=== PATIENT | female | born 1940 | race Caucasian/White ===

== ENCOUNTER 2018-06-20 01:35 | Outpatient (CLI) | payer MEDICARE, SELFPAY ==
[2018-06-20 12:57] LABS: ALT 22 U/L (12-78); AST 16 U/L (15-37); Albumin 3.6 g/dL (3.4-5.0); Alkaline Phosphatase 84 U/L (46-116); Anion Gap 10.3 mmol/L (3-11); BUN 12 mg/dL (7-18); Bilirubin, Total 0.4 mg/dL (0.2-1.0); CO2 24.7 mmol/L (21.0-32.0); CREATININE 0.81 mg/dL (0.55-1.02); Calcium 8.9 mg/dL (8.5-10.1); Chloride 105 mmol/L (98-107); Glucose 112 mg/dL (70-100); Potassium 4.4 mmol/L (3.5-5.1); Sodium 140 mmol/L (136-145); TSH (W/Ref FT4) 4.52 uIU/mL (0.358-3.74); Total Protein 7.1 g/dL (6.4-8.2)
[2018-06-20 13:30] LABS: FREE T4 1.08 ng/dL (0.76-1.46)
== END 2018-06-20 01:55 ==
DX: E03.9 Hypothyroidism, unspecified; I10 Essential (primary) hypertension; K21.9 Gastro-esophageal reflux disease without esophagitis; G25.0 Essential tremor
CPT/HCPCS: 36415; 80053; 84439; 84443

== ENCOUNTER 2018-09-22 11:37 | Outpatient (CLI) | payer MEDICARE, SELFPAY ==
--- NOTE | 2018-09-22 11:34 | DI.RAD_ITS ---
SYMPTOM/DIAGNOSIS: PAIN RIGHT HIP AND PELVIS: Comparison is made with 09/21/16. There has been interval worsening of hip joint space narrowing, greatest superiorly. Merissa-articular spurring is again noted. No femoral head flattening is seen. Spurring is also seen at the left hip joint with slight worsening when compared with the previous exam. IMPRESSION: Moderate to severe degenerative changes of the right hip. Moderate degenerative changes of the left hip.
== END 2018-09-22 11:57 ==
PROVIDERS: Visit Provider Orthopaedic Surgery
DX: M25.551 Pain in right hip (principal); M16.11 Unilateral primary osteoarthritis, right hip
CPT/HCPCS: 20610; 99201; 99214; 73502; J1040

== ENCOUNTER 2018-10-31 12:40 | Day surgery (SDC) | payer MEDICARE, SELFPAY ==
[2018-10-31 13:06] VITALS: BP 160/81; PULSE 65; RESP 18; TEMP 36.4; O2SAT 96
--- NOTE | 2018-10-31 16:11 | DI.RAD_ITS ---
SYMPTOM/DIAGNOSIS: OA RT HIP RIGHT HIP IN OR: Fluoroscopy Time: 6.8sec, 1.44mgy A single fluoroscopic image of the right hip was obtained. There is marked joint space narrowing, subchondral sclerosis and periarticular spurring noted in the right hip. IMPRESSION: Marked osteoarthritis of the right hip.
[2018-10-31] MEDS: methylPREDNISolone ACETATE 80 MG/ML VIAL (16:35)
--- NOTE | 2018-10-31 16:41 | W.PM.DSUDISC ---
Discharge Plan Disposition Patient Disposition: HOME Condition: Good Discharge Details Reason For Visit: C-arm guided R hip injection Attending Provider: Ed Ji Primary Care Provider: Ivy Clements Home Meds and New Rx's Prescriptions: No Action acetaminophen 325 mg capsule 650 mg PO Q6H PRNRF: 0 cholecalciferol (vitamin D3) 1,000 unit capsule 1,000 unit PO DAILY RF: 0 omeprazole 20 mg capsule,delayed release(DR/EC) 20 mg PO DAILY Qty: 90 RF: 3 propranolol 10 mg tablet 10 mg PO DAILY Qty: 90 RF: 3 ibuprofen 200 MG capsule 2 cap PO BID PRN RF: 0 flaxseed oil 1,000 MG capsule 1,000 mg PO DAILY RF: 0 docusate sodium 100 MG capsule 100 mg PO daily prn RF: 0 cyanocobalamin (vitamin B-12) [Vitamin B-12] 1,000 MCG tablet 1,000 mcg PO DAILY Qty: 100 RF: 4 glucosamine HCl 500 MG tablet 500 mg PO DAILY RF: 0 vitamin E 400 UNIT capsule 400 unit PO DAILY RF: 0 B-complex with vitamin C [Super B Complex-Vitamin C] 1 EACH tablet 1 ea PO DAILY RF: 0 clobetasol 15 GM ointment 15 gm Topical DAILY Qty: 1 RF: 3 diltiazem HCl 180 MG capsule,extended release 24hr 180 mg PO DAILY Qty: 90 RF: 3 losartan 100 MG tablet 100 mg PO DAILY Qty: 90 RF: 4 levothyroxine 50 mcg tablet 50 mcg PO DAILY Qty: 90 RF: 4 tizanidine 2 mg capsule 2 mg PO TID PRN (Reason: muscle spasticity) Qty: 30 RF: 0 glucosamine-chondroitin [Osteo Bi-Flex] 250-200 mg Tablet 1 tab PO BID RF: 0 Discharge Instructions Additional Instructions: Rest your R hip for 48 hours. After 48 hours, gradually resume activities as tolerated. Take tylenol or ibuprofen as needed for pain. Follow up with in one month. Referrals: Ed Ji MD [ [facility] STAFF PHYSICIAN] - (f/u in one month.) Activity:: Activity as Tolerated Diet:: As Tolerated Discharge Orders Discharge Orders: Discharge Order (Routine); Ordered 10/31/18 Ordered By: Ed Ji DS: Diagnosis Discharge Diagnosis (1) OA (osteoarthritis) of hip: Status: Acute
[2018-10-31] MEDS: oxyCODONE-CR 10 MG TABCR PO (17:14)
[2018-10-31] MEDS: Acetaminophen 325 MG TAB 650 MG PO (17:14)
--- NOTE | 2018-10-31 17:27 | ROE_ITS ---
DATE OF PROCEDURE: October 31, 2018 PREOPERATIVE DIAGNOSIS: Right hip pain, probable osteoarthritis of the right hip. POSTOPERATIVE DIAGNOSIS: Same. PROCEDURE: C-arm guided right hip injection with local anesthetic and steroids. SURGEON: Ed Ji M.D. ANESTHESIA: Local. INDICATIONS: This is an 78-year-old white female who has had a several-month history of significant right hip pain. It was difficult to determine whether the pain was extraarticular from her trochante ángel bursa or whether it was intraarticular due to osteoarthritis of the hip. She underwent an inject ion of her trochanteric bursa without any long-term relief. I, therefore, recommended a diagnostic a nd also possibly therapeutic injection of her right hip with C-arm guidance. This would confirm the hip joint as the source of pain. Hopefully she would get some long-term relief from the steroids inj ection as well. The risks and complications of the procedure were explained to the patient in detail preoperatively. PROCEDURE: The patient was taken to the Operating Room on 10/31/18. She was placed supine on the ope rating table. The hip joint was localized using a uterine forceps and the C-arm. The uterine forcep s was then circled with a pen and the skin was prepped with alcohol. An 18-gauge spinal needle was t hen inserted in the area of the previous yfn until it encountered the femoral head. The C-arm was u sed to confirm the position of the needle in the femoral head. I then injected into the hip 15 cc of 0.5% Marcaine with epinephrine solution along with 80 mg of Depo-Medrol. The needle was removed. I did perform passive range of motion of the hip for 30 seconds to distribute the medication. The pat ient tolerated the procedure well and was discharged to the Day Surgery Unit in good condition. The patient was discharged home from the Day Surgery unit with instructions to rest her hip as much a s possible for the next 48 hours. After 48 hours, she can gradually resume activities as tolerated. She was given 10 mg of OxyContin in the Day Surgery Unit prior to discharge home. At home she is in structed to take either Tylenol or ibuprofen, or both, as needed for pain. She will follow up in my office in one month.
== END 2018-10-31 17:58 | disposition home or self-care (01) ==
PROVIDERS: Visit Provider Orthopaedic Surgery
PROC: (CPT 20610; principal; 2018-10-31 13:30)
DX: M25.551 Pain in right hip (principal); M16.11 Unilateral primary osteoarthritis, right hip
CPT/HCPCS: 20610; 77002; 73501; J1040

== ENCOUNTER 2019-01-23 11:32 | Outpatient (CLI) | payer MEDICARE, MEDICAID, SELFPAY ==
[2019-01-23 12:36] LABS: HCT 37.5 % (36.0-46.0); HGB 12.3 g/dL (12.0-15.5); Mean Corp. HGB Concentration 32.8 g/dL (32.0-36.0); Mean Corpuscular Hemoglobin 31.5 pg (27.0-33.0); Mean Corpuscular Volume 95.9 fL (80-95); Platelet Count 264 x1000/uL (130-400); RBC 3.91 m/cumm (4.00-5.20); RBC Distribution Width 12.7 % (11.7-14.6)
[2019-01-23 14:02] LABS: ALT 22 U/L (12-78); AST 15 U/L (15-37); Albumin 3.6 g/dL (3.4-5.0); Alkaline Phosphatase 76 U/L (46-116); Anion Gap 10.8 mmol/L (3-11); BUN 16 mg/dL (7-18); Bilirubin, Total 0.3 mg/dL (0.2-1.0); CO2 23.2 mmol/L (21.0-32.0); CREATININE 0.85 mg/dL (0.55-1.02); Calcium 9.4 mg/dL (8.5-10.1); Chloride 103 mmol/L (98-107); Glucose 103 mg/dL (70-100); Potassium 4.7 mmol/L (3.5-5.1); Sodium 137 mmol/L (136-145); TSH (W/Ref FT4) 3.59 uIU/mL (0.358-3.74); Total Protein 7.2 g/dL (6.4-8.2); Vitamin B12 1840 pg/mL (193-986)
== END 2019-01-23 11:52 ==
PROVIDERS: Visit Provider Family Medicine
DX: E03.9 Hypothyroidism, unspecified (principal); E53.8 Deficiency of other specified B group vitamins; Z01.818 Encounter for other preprocedural examination
CPT/HCPCS: 36415; 80053; 85027; 82607; 84443

== ENCOUNTER 2019-03-03 08:17 | Outpatient (CLI) | payer MEDICARE, MEDICAID, SELFPAY ==
[2019-03-03 12:51] LABS: HCT 35.1 % (36.0-46.0); HGB 11.2 g/dL (12.0-15.5); Mean Corp. HGB Concentration 31.9 g/dL (32.0-36.0); Mean Corpuscular Hemoglobin 30.3 pg (27.0-33.0); Mean Corpuscular Volume 94.9 fL (80-95); Mean Platelet Volume 9.5 fL (8.0-11.0); Platelet Count 432 x1000/uL (130-400); RBC Distribution Width 12.7 % (11.7-14.6); White Blood Cell Count 5.85 k/cumm (4.4-10.8)
== END 2019-03-03 08:37 ==
DX: R42 Dizziness and giddiness (principal)
CPT/HCPCS: 36415; 85027

== ENCOUNTER 2019-06-13 07:00 | Outpatient (CLI) | payer MEDICARE, OTHER, SELFPAY ==
[2019-06-13 14:08] LABS: Glucose 98 mg/dL (70-100); Vitamin B12 397 pg/mL (193-986)
== END 2019-06-13 07:20 ==
DX: R73.01 Impaired fasting glucose (principal); D51.8 Other vitamin B12 deficiency anemias; R25.1 Tremor, unspecified; E53.8 Deficiency of other specified B group vitamins
CPT/HCPCS: 36415; 82947; 82607

== ENCOUNTER 2020-01-26 15:24 | Outpatient (CLI) | payer MEDICARE, OTHER, SELFPAY ==
--- NOTE | 2020-01-26 16:04 | DI.RAD_ITS ---
EXAM: XR HIP LT COMPLETE AP PELVIS CLINICAL HISTORY: fall, left hip pain, M25.552. TECHNIQUE: 2D digital imaging was performed. COMPARISON: CR XR HIP RT MIN 2V AND PELVIS from 09/08/2018 CR XR hip RT AP lat only from 09/22/2018 XR hip RT in OR from 10/31/2018 FINDINGS: BONES: No acute fracture is present. No bony destructive lesion is seen. Degenerative changes are see n in the lower lumbar spine and left hip. The sacroiliac joints and symphysis pubis are intact. JOINTS: No dislocation present. The patient has a right total hip replacement. SOFT TISSUE: Normal. IMPRESSION: No acute fracture or dislocation of the left hip. DATA REPOSITORY: RADIATION DOSE DELIVERED:
== END 2020-01-26 15:44 ==
PROVIDERS: Visit Provider Nurse Practitioner Family
DX: M25.552 Pain in left hip (principal)
CPT/HCPCS: 73502

== ENCOUNTER 2020-06-20 21:16 | Outpatient (REF) | payer MEDICARE, OTHER, SELFPAY ==
[2020-06-20 23:03] LABS: ALT 19 U/L (14-59); AST 15 U/L (15-37); Albumin 3.9 g/dL (3.4-5.0); Alkaline Phosphatase 90 U/L (46-116); Anion Gap 8.1 mmol/L (3-11); BUN 17 mg/dL (7-18); Bilirubin, Total 0.4 mg/dL (0.2-1.0); CO2 26.9 mmol/L (21.0-32.0); CREATININE 0.89 mg/dL (0.55-1.02); Calcium 9.2 mg/dL (8.5-10.1); Chloride 102 mmol/L (98-107); Glucose 100 mg/dL (74-106); Potassium 4.4 mmol/L (3.5-5.1); Sodium 137 mmol/L (136-145); TSH (W/Ref FT4) 3.05 uIU/mL (0.36-3.74); Total Protein 7.5 g/dL (6.4-8.2); Vitamin B12 281 pg/mL (193-986)
== END 2020-06-20 21:36 ==
LOC: LBN 21:16
DX: E03.9 Hypothyroidism, unspecified (principal); G47.00 Insomnia, unspecified; D51.8 Other vitamin B12 deficiency anemias; Z00.00 Encounter for general adult medical examination without abnormal findings
CPT/HCPCS: 80053; 82607; 84443

== ENCOUNTER 2022-10-05 10:56 | Day surgery (SDC) | payer MEDICARE, OTHER, SELFPAY ==
--- NOTE | 2022-10-05 10:59 | W.ANESPRE ---
General Info Date of Service Date Performed: 10/05/22 Height: 5 ft 2 in Weight: 88.451 kg Body Mass Index (BMI): 35.6 Surgical Procedure: Operation Date: 10/05/22 14:40 Proposed Procedure Side Surgeon p Cataract Extraction with IOL Implant Left Hayden Tabor MD Meds Allergies and Home Medications Allergies Allergy/AdvReac Type Severity Reaction Status Date / Time egg Allergy Unknown Verified 10/05/22 11:44 tetanus and diphtheria Allergy Unknown LARGE Verified 10/05/22 11:44 toxoids LOCAL REACTION amlodipine AdvReac Severe DIARRHEA Verified 10/05/22 11:44 codeine AdvReac Intermediate GI UPSET Verified 10/05/22 11:44 gabapentin AdvReac Intermediate Thoughts Verified 10/05/22 11:44 changed hydrochlorothiazide AdvReac Intermediate hyponatremi Verified 10/05/22 11:44 a naproxen AdvReac Intermediate Upset Verified 10/05/22 11:44 Stomach primidone AdvReac Intermediate Dizziness/L Unverified 10/05/22 11:44 ighthead lisinopril AdvReac Mild cough Verified 10/05/22 11:44 Home Medication Medication Instructions Recorded ibuprofen 200 mg capsule 2 cap PO BID PRN 11/17/12 flaxseed oil 1,000 mg capsule 1,000 mg PO DAILY 04/02/15 cyanocobalamin (vitamin B-12) 1,000 mcg PO DAILY #100 tab-caps 04/11/15 1,000 mcg tablet (Vitamin B-12) glucosamine HCl 500 mg tablet 500 mg PO DAILY 03/13/16 vitamin E 268 mg (400 unit) capsule 400 unit PO DAILY 04/20/16 cholecalciferol (vitamin D3) 25 1,000 unit PO DAILY 06/07/18 mcg (1,000 unit) capsule acetaminophen 325 mg capsule 650 mg PO Q6H PRN 09/14/18 meclizine 12.5 mg tablet 12.5 - 25 mg PO TID PRN dizziness 07/17/19 #42 tabs apple cider vinegar 600 mg capsule See Rx Instructions PO .COMPLEX 01/26/20 propranolol 10 mg tablet 10 mg PO BID #180 tabs 02/29/20 clobetasol 0.05 % topical ointment 1 applic topical DAILY #1 tube 06/20/20 losartan 100 mg tablet 100 mg PO DAILY #90 tab-caps 06/26/20 diltiazem HCl 180 mg 180 mg PO DAILY #30 tab-caps 11/21/20 capsule,extended release 24 hr cyclobenzaprine 10 mg tablet 10 mg PO HS 10/01/22 estradiol 0.01% (0.1 mg/gram) 1 g vaginal HS 10/01/22 vaginal cream levothyroxine 75 mcg tablet 75 mcg PO DAILY 10/01/22 loteprednol etabonate 0.5 % eye 1 drp ophthalmic (eye) QID 10/01/22 drops,suspension metoprolol succinate 100 mg 100 mg PO DAILY 10/01/22 tablet,extended release 24 hr omeprazole 40 mg capsule,delayed 40 mg PO DAILY 10/01/22 release primidone 50 mg tablet 50 mg PO BID 10/01/22 Current Visit Medications: Current Medications Generic Name Dose Route Start Last Admin Trade Name Freq PRN Reason Stop Dose Admin Acetaminophen 1,000 mg 10/05/22 06:00 Acetaminophen 500 Mg Tab PO Q4H PRN PRN Miscellaneous Medication 0 ml 10/05/22 06:00 Tropicam./Phenyleph. (1/2.5%) 5 Ml Btl OS DIRECTED LORIE Miscellaneous Medication 0 ml 10/05/22 06:00 Prednisolone 1%, Moxifloxacin 0.5%, Nepafenac 0.1% 5ml Btl OS DIRECTED LORIE Tetracaine HCl 0 ml 10/05/22 06:00 Tetracaine 0.5% 4 Ml Btl OS DIRECTED LORIE PFSH Active Problems Active Problems: Problem Status Onset Code Cortical cataract of left eye H26.9 Nuclear sclerotic cataract of left eye H25.12 Impacted cerumen, right ear H61.21 Encounter for annual physical exam Z00.00 Vulvovaginitis N76.0 Status post hip replacement Z96.649 Diverticulosis of colon without diverticulitis K57.30 Status post carpal tunnel release Z98.890 OA (osteoarthritis) of hip M16.9 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 Diverticulosis Essential hypertension Gastroesophageal reflux disease Hiatal hernia Hyponatremia (09/26/13) Hypothyroidism Medical History Comments:: Per pt. states she was in [facility] ER, for high BP, and chest pressure, pt. stated she had whole work-up which came back negative. Surgical History Surgical History History of gynecological procedure Open Carpal Tunnel release 1993,2007 Status post tonsillectomy and adenoidectomy Tonsillectomy and adenoidectomy (~1943) Vaginal sling Tobacco Smoking/Tobacco Use Status: Never Passive smoking exposure: Yes Alcohol Alcohol Intake: never Substance Use Substance use: Never Substance use type: does not use Counseling provided: none Vital Signs and Lab Results Lab Results Blood Type / Crossmatch: No Data to Display Complete Blood Count: No Data to Display Complete Metabolic Panel: No Data to Display Liver Function Panel: No Data to Display Coagulation Panel: No Data to Display Cardiac Panel: No Data to Display Arterial Blood Gas: No Data to Display Venous Blood Gas: No Data to Display Pancreas Panel: No Data to Display Thyroid Panel: No Data to Display Infectious Disease: No Data to Display Blood Cultures: No Data to Display Toxicology Panel: No Data to Display Anesthesia Assessment and Plan Anesthesia History Personal History: No History of Anesthesia Complications Family History: No Family History of Anesthesia Complications Exercise Tolerance Exercise Tolerance: Metabolic Equivalents>4 Cardiac & Pulmonary Exam Cardiac Exam: Normal S1/S2 Heart Sounds Pulmonary Exam: Clear Bilateral Breath Sounds Implantable Cardiac Device Does patient have a Pacemaker or an ICD?: No Airway Exam Known Difficult Airway: No Mallampati Class: 3 Mouth Opening: Normal (> 3cm) Thyromental Distance: Greater than 3 cm Neck Range of Motion: Full ROM Neck Circumference: Thick Teeth Condition: Normal Dentition ASA Classification ASA Score: ASA 2 Emergency Case?: No NPO Status NPO Status: NPO Clears >2 hours, Solids >8 hours Anesthesia Plan Resuscitation Status: Full Code Anesthesia Technique: MAC Anesthesia Airway Planned: Natural Airway Monitors Used: Standard Monitors Preoperative Comments:: 82 yo female for cataract removal. Sig PMHx: hypothyroid (levothyroxine), GERD (omeprazole), tremor (? metoprolol, also has propranolol on her list, unclear which she take, but seems like metop), HTN (dilt, losartan), asthma (hasn't had in years), never smoker/etoh.
[2022-10-05 11:15] VITALS: BP 167/84; PULSE 57; RESP 16; TEMP 36.4; O2SAT 97
[2022-10-05 12:00] VITALS: BMI 35.6
[2022-10-05] MEDS: Tropicam./Phenyleph. (1/2.5%) 5 ML BTL OS ×3 (12:06→12:25)
[2022-10-05] MEDS: Tetracaine 0.5% 4 ML BTL OS (12:55)
[2022-10-05] MEDS: Balanced Salt Soln.-PLUS 500 ML BAG (12:56)
[2022-10-05] MEDS: Duovisc Viscoelastic System EACH 1 EACH (12:56)
[2022-10-05] MEDS: Lidocaine 1% Pres-Free 5 ML VIAL (12:56)
[2022-10-05] MEDS: Lidocaine 2% Jelly 6 ML SYR (12:57)
[2022-10-05] MEDS: Povidone-Iodine Ophth 30 ML BTL (12:58)
[2022-10-05 13:10] VITALS: BP 146/68; PULSE 57; RESP 16; TEMP 36.3; O2SAT 98
--- NOTE | 2022-10-05 13:10 | W.PM.DSUDISC ---
Date of service: 10/05/22 Time of Service: 13:10 Discharge Plan Disposition Patient Disposition: Home Discharge Details Attending Provider: Hayden Tabor Primary Care Provider: Andres Starks Home Meds and New Rx's Prescriptions: No Action acetaminophen 325 mg capsule 650 mg PO Q6H PRN cholecalciferol (vitamin D3) 1,000 unit capsule 1,000 unit PO DAILY meclizine 12.5 mg tablet 12.5 - 25 mg PO TID PRN (Reason: dizziness) Qty: 42 0RF ibuprofen 200 MG capsule 2 cap PO BID PRN flaxseed oil 1,000 MG capsule 1,000 mg PO DAILY cyanocobalamin (vitamin B-12) [Vitamin B-12] 1,000 MCG tablet 1,000 mcg PO DAILY Qty: 100 Hold Instructions: Home Medication placed on hold at Doctor's office glucosamine HCl 500 MG tablet 500 mg PO DAILY vitamin E 400 UNIT capsule 400 unit PO DAILY losartan 100 mg tablet 100 mg PO DAILY Qty: 90 4RF diltiazem HCl 180 mg capsule,extended release 24hr 180 mg PO DAILY Qty: 30 0RF cyclobenzaprine 10 mg tablet 10 mg PO HS Patient Comments: TAKE 1 TABLET BY MOUTH ONCE DAILY AT NIGHT AT BEDTIME primidone 50 mg tablet 50 mg PO BID Patient Comments: TAKE 1 TABLET BY MOUTH TWICE DAILY metoprolol succinate 100 mg tablet extended release 24 hr 100 mg PO DAILY Patient Comments: TAKE 1 TABLET BY MOUTH ONCE DAILY omeprazole 40 mg capsule,delayed release(DR/EC) 40 mg PO DAILY Patient Comments: TAKE 1 CAPSULE BY MOUTH ONCE DAILY FOR 90 DAYS levothyroxine 75 mcg tablet 75 mcg PO DAILY Patient Comments: TAKE 1 TABLET BY MOUTH ONCE DAILY loteprednol etabonate 0.5 % drops,suspension 1 drp ophthalmic (eye) QID Patient Comments: INSTILL 1 DROP INTO EACH EYE 4 TIMES DAILY estradiol 0.01 % (0.1 mg/gram) cream 1 g VAGINAL HS Patient Comments: INSERT 1 GRAM VAGINALLY AT BEDTIME Discharge Instructions Stand Alone Forms: Post-op Topical Cataract, Press Ganey (DSU) Discharge Orders Discharge Orders: Discharge Order (Routine); Ordered 10/05/22 Ordered By: Hayden Tabor DS: Diagnosis Discharge Diagnosis (1) Nuclear sclerotic cataract of left eye: Status: Resolved (2) Cortical cataract of left eye: Status: Resolved
--- NOTE | 2022-10-05 13:11 | ROE_ITS ---
Date of service: 10/05/22 Time of Service: 13:11 Operative Note Operative Note DATE OF PROCEDURE: 10/05/22 PRE-OP DIAGNOSIS: Nuclear/cortical cataract, left eye POST-OP DIAGNOSIS: same PROCEDURE: Cataract extraction using phacoemulsification with intraocular lens implant, left eye SURGEON: Hayden Tabor ANESTHESIA TYPE: Local By Surgeon and MAC Refer to Anesthesia Record PATHOLOGY: none sent COMPLICATIONS: None Patient was transported to: same day Patient's condition: stable Implants: Jean-Pierre and Jean-Pierre Tecnis Eyhance [id number] Indications: Progressive decreased vision due to cataract, left eye Procedure Description: CATARACT SURGERY OPERATIVE REPORT PREOPERATIVE DIAGNOSIS: 1. Nuclear/cortical cataract, left eye POSTOPERATIVE DIAGNOSIS: Same OPERATION: 1. Cataract extraction using phacoemulsification with posterior chamber intraocular lens implant, left eye. IOL: IOL Trestle Mainternance Laborer/Model: Jean-Pierre & Jean-Pierre [employer]ecnis Eyhance DIB00 IOL Power: + 24.0 diopters IOL Serial Number: [id number] Optic Diameter: 6.0 mm Haptic/Overall Diameter: 13.0 mm PHACO INFO: [employer] Vision System with OZil and Active Fluidics Cumulative Dispersed Energy (CDE): 9.62 seconds SURGEON: Hayden Tabor MD, SANDER ANESTHESIA: Monitored A [facility] (MAC), with local sub-tenon's anesthetic infiltration COMPLICATIONS: None SPECIMENS: None INDICATIONS FOR PROCEDURE: The patient is an 82-year-old lady with history of diminished visual acuity in her left eye secondary to the development of nuclear/cortical cataract. She is significantly symptomatic that she desires cataract surgery attempt to improve and maximize her vision. The option of cataract surgery was offered to the patient and she wished to proceed. PROCEDURE: The correct surgical eye was identified and marked as the left eye and the pupil was dilated in the preoperative area using mydriatics and cycloplegics. The dilated pupil size was 7.0 mm. . The patient elected to proceed without oral sedation. The patient was brought to the operating room where cardiopulmonary monitoring was instituted and surgical time-out was performed, confirming the correct operative eye and IOL power. Topical anesthesia was administered and ophthalmic povidone-iodine 5% was instilled into the conjunctival fornices. Lidocaine gel was applied to the cornea and the magalys-ocular area was prepped with Betadine 10% solution and draped in the usual sterile fashion for intraocular surgery, including an aperture drape. A Tegaderm transparent film dressing was cut in half and used to cover the lashes and lid margins. Care was taken to sequester the lashes and lid margins under the Tegaderm dressing. A lid speculum was placed between the lids of the operative eye and the Malick [employer] Revalia operating microscope was maneuvered into position. Ciara scissors were then used to make a conjunctival buttonhole approximately 6mm posterior to the limbus in the inferonasal quadrant. Blunt dissection was carried out to expose bare sclera, and a blunt-tipped sub-tenon?s anesthesia cannula was introduced and passed posteriorly along the globe where non- preserved plain lidocaine was injected into posterior sub-Tenon?s space. A sideport knife was used to make a paracentesis port superiorly/superiortemporally. Intraocular phenylephrine/lidocaine was injected int the anterior chamber.. The anterior chamber was filled with viscoelastic. A keratome knife was used to construct a 2-plane near-clear corneal tunnel extending 2.0mm into clear cornea temporally. A flap was raised on the anterior capsule and capsulorhexis forceps were used to complete a continuous curvilinear capsulorhexis of 5.5 mm. Balanced salt solution was then used to perform cortical cleaving hydrodissection and nuclear hydrodelineation until the lens could be freely rotated within the capsular bag. The lens nucleus was then disassembled and removed within the capsular bag and iris plane using phacoemulsification. Residual cortical material was removed using the 45-degree angled silicone I/A tip with 0.3mm port. The posterior capsule was carefully polished to remove as much residual lens epithelial cells as safely possible. The capsular bag was then inflated and the anterior chamber deepened with viscoelastic. The lens implant described above was inserted into the capsular bag using the Jean-Pierre and Jean-Pierre Simplicity pre-loaded injector. . A Kuglen hook was used to dial the IOL into position. Residual viscoelastic was then removed first from posterior to the IOL, then from the anterior chamber using the I/A handpiece. The lens implant was noted to center nicely within the capsular bag. The incisions were stromally hydrated, and the anterior chamber was reformed using BSS. Then 0.5cc of moxifloxacin 1.0mg/ml were injected into the capsular bag and anterior chamber. The incisions were checked with a Weck spear and found to be secure. Several drops of ophthalmic povidone-iodine 5% were then applied to the eye followed by two drops of Imprimis combination prednisolone/moxifloxacin/nepafenac solution. The drapes were removed and a clear plastic protective eye shield was placed over the eye. The patient was then returned to Same Day Surgery in stable condition.
--- NOTE | 2022-10-05 14:01 | W.ANESPOSTOP ---
Postoperative Evaluation Date, Time and Location Date Performed: 10/05/22 Time Performed: 13:10 Patient Location: Day Surgery Unit Vital Signs Most Recent Imported Vital Signs: Most Recent Vital Signs Temp Pulse Resp BP Pulse Ox 36.3 C L 57 L 16 146/68 H 98 10/05/22 13:10 10/05/22 13:10 10/05/22 13:10 10/05/22 13:10 10/05/22 13:10 Pain Score Most Recent Pain Score: Most Recent Pain Score Pain Level 0 10/05/22 13:10 Assessment Mental Status: Awake (Alert & Oriented to Patient Baseline) Airway and Respiratory Function: Patent airway with normal (patient baseline) respiratory exam Cardiovascular Function: Hemodynamically Stable Hydration Status: Adequately Hydrated Nausea & Vomiting: No Nausea or Vomiting Pain: Pt. Denies Any Pain Peripheral Nerve Block: Patient did not receive a nerve block
== END 2022-10-05 13:40 | disposition home or self-care (01) ==
PROVIDERS: PCP Family Medicine; Visit Provider Ophthalmology
PROC: (CPT 66984; principal; 2022-10-05 14:30)
DX: H25.12 Age-related nuclear cataract, left eye (principal)
CPT/HCPCS: 66984; V2632

== ENCOUNTER 2022-10-19 10:32 | Day surgery (SDC) | payer MEDICARE, OTHER, SELFPAY ==
--- NOTE | 2022-10-19 06:55 | W.ANESPRE ---
General Info Date of Service Date Performed: 10/19/22 Height: 5 ft 2 in Weight: 89.4 kg Body Mass Index (BMI): 36.0 Surgical Procedure: Operation Date: 10/19/22 13:40 Proposed Procedure Side Surgeon p Cataract Extraction with IOL Implant Right Hayden Tabor MD Meds Allergies and Home Medications Allergies Allergy/AdvReac Type Severity Reaction Status Date / Time egg Allergy Unknown Verified 10/19/22 10:59 tetanus and diphtheria Allergy Unknown LARGE Verified 10/19/22 10:59 toxoids LOCAL REACTION amlodipine AdvReac Severe DIARRHEA Verified 10/19/22 10:59 codeine AdvReac Intermediate GI UPSET Verified 10/19/22 10:59 gabapentin AdvReac Intermediate Thoughts Verified 10/19/22 10:59 changed hydrochlorothiazide AdvReac Intermediate hyponatremi Verified 10/19/22 10:59 a naproxen AdvReac Intermediate Upset Verified 10/19/22 10:59 Stomach primidone AdvReac Intermediate Dizziness/L Unverified 10/19/22 10:59 ighthead lisinopril AdvReac Mild cough Verified 10/19/22 10:59 Home Medication Medication Instructions Recorded ibuprofen 200 mg capsule 2 cap PO BID PRN 11/17/12 flaxseed oil 1,000 mg capsule 1,000 mg PO DAILY 04/02/15 cyanocobalamin (vitamin B-12) 1,000 mcg PO DAILY #100 tab-caps 04/11/15 1,000 mcg tablet (Vitamin B-12) glucosamine HCl 500 mg tablet 500 mg PO DAILY 03/13/16 vitamin E 268 mg (400 unit) capsule 400 unit PO DAILY 04/20/16 cholecalciferol (vitamin D3) 25 1,000 unit PO DAILY 06/07/18 mcg (1,000 unit) capsule acetaminophen 325 mg capsule 650 mg PO Q6H PRN 09/14/18 meclizine 12.5 mg tablet 12.5 - 25 mg PO TID PRN dizziness 07/17/19 #42 tabs losartan 100 mg tablet 100 mg PO DAILY #90 tab-caps 06/26/20 diltiazem HCl 180 mg 180 mg PO DAILY #30 tab-caps 11/21/20 capsule,extended release 24 hr cyclobenzaprine 10 mg tablet 10 mg PO HS 10/01/22 levothyroxine 75 mcg tablet 75 mcg PO DAILY 10/01/22 loteprednol etabonate 0.5 % eye 1 drp ophthalmic (eye) QID 10/01/22 drops,suspension metoprolol succinate 100 mg 100 mg PO DAILY 10/01/22 tablet,extended release 24 hr omeprazole 40 mg capsule,delayed 40 mg PO DAILY 10/01/22 release primidone 50 mg tablet 50 mg PO BID 10/01/22 estradiol 0.01% (0.1 mg/gram) 1 g vaginal HS 10/05/22 vaginal cream Current Visit Medications: Current Medications Generic Name Dose Route Start Last Admin Trade Name Freq PRN Reason Stop Dose Admin Acetaminophen 1,000 mg 10/19/22 06:00 Acetaminophen 500 Mg Tab PO Q4H PRN PRN Miscellaneous Medication 0 ml 10/19/22 06:00 Tropicam./Phenyleph. (1/2.5%) 5 Ml Btl OD DIRECTED [facility] Miscellaneous Medication 0 ml 10/19/22 06:00 Prednisolone 1%, Moxifloxacin 0.5%, Nepafenac 0.1% 5ml Btl OD DIRECTED LORIE Tetracaine HCl 0 ml 10/19/22 06:00 Tetracaine 0.5% 4 Ml Btl OD DIRECTED [facility] PFSH Active Problems Active Problems: Problem Status Onset Code Posterior subcapsular age-related cataract, right eye H25.041 Nuclear age-related cataract, right eye H25.11 Degenerative arthritis M19.90 Essential tremor 04/20/16 G25.0 Gastroesophageal reflux disease K21.9 Hypertension I10 Hypothyroidism 06/05/11 E03.9 Sciatica 02/11/12 M54.30 Vitamin B 12 deficiency 04/02/14 E53.8 Hip pain, right M25.551 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 COVID 09/04/22 Diverticulosis Essential hypertension Gastroesophageal reflux disease Hiatal hernia Hyponatremia (09/26/13) Hypothyroidism Transient cerebral ischemia Per patient hospitalized overnight summer 2020. Symptoms Resolved within 30 min. Surgical History Surgical History (Updated 10/19/22 @ 10:58 by Mary Cuellar) History of gynecological procedure Hx of cataract removal with insertion of prosthetic lens Open Carpal Tunnel release 1993,2007 Status post tonsillectomy and adenoidectomy Tonsillectomy and adenoidectomy (~1943) Vaginal sling Tobacco Smoking/Tobacco Use Status: Never Passive smoking exposure: Yes Alcohol Alcohol Intake: never Substance Use Substance use: Never Substance use type: does not use Counseling provided: none Vital Signs and Lab Results Vital Signs Most Recent Vital Signs in EMR: Temp Pulse Resp BP Pulse Ox 36.4 C L 58 L 18 165/85 H 97 10/19/22 11:07 10/19/22 11:07 10/19/22 11:07 10/19/22 11:07 10/19/22 11:07 Lab Results Blood Type / Crossmatch: No Data to Display Complete Blood Count: No Data to Display Complete Metabolic Panel: No Data to Display Liver Function Panel: No Data to Display Coagulation Panel: No Data to Display Cardiac Panel: No Data to Display Arterial Blood Gas: No Data to Display Venous Blood Gas: No Data to Display Pancreas Panel: No Data to Display Thyroid Panel: No Data to Display Infectious Disease: No Data to Display Blood Cultures: No Data to Display Toxicology Panel: No Data to Display Anesthesia Assessment and Plan Anesthesia History Personal History: No History of Anesthesia Complications Family History: No Family History of Anesthesia Complications Exercise Tolerance Exercise Tolerance: Metabolic Equivalents>4 Cardiac & Pulmonary Exam Cardiac Exam: Normal S1/S2 Heart Sounds Pulmonary Exam: Clear Bilateral Breath Sounds Implantable Cardiac Device Does patient have a Pacemaker or an ICD?: No Airway Exam Known Difficult Airway: No Mallampati Class: 3 Mouth Opening: Normal (> 3cm) Thyromental Distance: Greater than 3 cm Neck Range of Motion: Full ROM Neck Circumference: Thick Teeth Condition: Normal Dentition ASA Classification ASA Score: ASA 2 Emergency Case?: No NPO Status NPO Status: NPO Clears >2 hours, Solids >8 hours Anesthesia Plan Resuscitation Status: Full Code Anesthesia Technique: MAC Anesthesia Airway Planned: Natural Airway Monitors Used: Standard Monitors Preoperative Comments:: 82 yo female for repeat cataract removal. no change in health history. Sig PMHx: hypothyroid (levothyroxine), GERD (omeprazole), tremor (? metoprolol, also has propranolol on her list, unclear which she take, but seems like metop), HTN (dilt, losartan), asthma (hasn't had in years), never smoker/etoh. Previous Cat without MKO. would like the same today.
[2022-10-19 10:23] VITALS: BMI 36.0
[2022-10-19] MEDS: Tropicam./Phenyleph. (1/2.5%) 5 ML BTL OD ×3 (11:06→11:21)
[2022-10-19 11:07] VITALS: BP 165/85; PULSE 58; RESP 18; TEMP 36.4; O2SAT 97
[2022-10-19] MEDS: Balanced Salt Soln.-PLUS 500 ML BAG (11:54)
[2022-10-19] MEDS: Tetracaine 0.5% 4 ML BTL OD (11:54)
[2022-10-19] MEDS: Lidocaine 1% Pres-Free 5 ML VIAL (11:55)
[2022-10-19] MEDS: Lidocaine 2% Jelly 6 ML SYR (11:55)
[2022-10-19] MEDS: Duovisc Viscoelastic System EACH 1 EACH (11:55)
[2022-10-19] MEDS: Povidone-Iodine Ophth 30 ML BTL (11:56)
[2022-10-19] MEDS: Phenylephrine/Lidocaine (15/10) MG/ML 1 ML VIAL (11:56)
[2022-10-19 12:18] VITALS: BP 151/69; PULSE 56; RESP 16; TEMP 36; O2SAT 100
--- NOTE | 2022-10-19 12:18 | W.PM.DSUDISC ---
Date of service: 10/19/22 Time of Service: 12:18 Discharge Plan Disposition Patient Disposition: Home Discharge Details Attending Provider: Hayden Tabor Primary Care Provider: Andres Starks Home Meds and New Rx's Prescriptions: No Action acetaminophen 325 mg capsule 650 mg PO Q6H PRN cholecalciferol (vitamin D3) 1,000 unit capsule 1,000 unit PO DAILY meclizine 12.5 mg tablet 12.5 - 25 mg PO TID PRN (Reason: dizziness) Qty: 42 0RF ibuprofen 200 MG capsule 2 cap PO BID PRN flaxseed oil 1,000 MG capsule 1,000 mg PO DAILY cyanocobalamin (vitamin B-12) [Vitamin B-12] 1,000 MCG tablet 1,000 mcg PO DAILY Qty: 100 Hold Instructions: Home Medication placed on hold at Doctor's office glucosamine HCl 500 MG tablet 500 mg PO DAILY vitamin E 400 UNIT capsule 400 unit PO DAILY losartan 100 mg tablet 100 mg PO DAILY Qty: 90 4RF diltiazem HCl 180 mg capsule,extended release 24hr 180 mg PO DAILY Qty: 30 0RF cyclobenzaprine 10 mg tablet 10 mg PO PRN PRN Patient Comments: TAKE 1 TABLET BY MOUTH ONCE DAILY AT NIGHT AT BEDTIME primidone 50 mg tablet 50 mg PO BID Patient Comments: TAKE 1 TABLET BY MOUTH TWICE DAILY metoprolol succinate 100 mg tablet extended release 24 hr 100 mg PO DAILY Patient Comments: TAKE 1 TABLET BY MOUTH ONCE DAILY omeprazole 40 mg capsule,delayed release(DR/EC) 40 mg PO DAILY Patient Comments: TAKE 1 CAPSULE BY MOUTH ONCE DAILY FOR 90 DAYS levothyroxine 75 mcg tablet 75 mcg PO DAILY Patient Comments: TAKE 1 TABLET BY MOUTH ONCE DAILY loteprednol etabonate 0.5 % drops,suspension 1 drp ophthalmic (eye) QID Patient Comments: INSTILL 1 DROP INTO EACH EYE 4 TIMES DAILY estradiol 0.01 % (0.1 mg/gram) cream 1 g VAGINAL HS Patient Comments: INSERT 1 GRAM VAGINALLY AT BEDTIME Discharge Instructions Stand Alone Forms: Post-op Topical Cataract, Press Ganey (DSU) Discharge Orders Discharge Orders: Discharge Order (Routine); Ordered 10/19/22 Ordered By: Hayden Tabor DS: Diagnosis Discharge Diagnosis (1) Nuclear age-related cataract, right eye: Status: Resolved (2) Posterior subcapsular age-related cataract, right eye: Status: Resolved
--- NOTE | 2022-10-19 12:19 | W.PM.OP ---
Date of service: 10/19/22 Time of Service: 12:19 Operative Note Operative Note DATE OF PROCEDURE: 10/19/22 PRE-OP DIAGNOSIS: Nuclear/posterior subcapsular cataract, right eye POST-OP DIAGNOSIS: same PROCEDURE: Cataract extraction using phacoemulsification with intraocular lens implant, right eye SURGEON: Hayden Tabor ANESTHESIA TYPE: Local By Surgeon and MAC Refer to Anesthesia Record ESTIMATED BLOOD LOSS: 0 PATHOLOGY: none sent COMPLICATIONS: None Patient was transported to: same day Patient's condition: stable Implants: Jean[employer]Pierre & Jean-Pierre Tecnis Eyhance [id number] Indications: Progressive visual loss due to cataract, right eye Procedure Description: CATARACT SURGERY OPERATIVE REPORT PREOPERATIVE DIAGNOSIS: 1. Nuclear/posterior subcapsular cataract, right eye POSTOPERATIVE DIAGNOSIS: Same OPERATION: 1. Cataract extraction using phacoemulsification with posterior chamber intraocular lens implant, right eye. IOL: IOL Yarn Winder/Model: Jean-Pierre & Jean-Pierre Tecnis Eyhance DIB00 IOL Power: + 24.5 diopters IOL Serial Number: [id number] Optic Diameter: 6.0mm Haptic/Overall Diameter: 13.0mm PHACO INFO: Malick Smartbill - Recurrence Backofficeurion Vision System with OZil and Active Fluidics Cumulative Dispersed Energy (CDE): 11.01 seconds SURGEON: Hayden Tabor MD, SANDER ANESTHESIA: Monitored Anesthesia Care (MAC), with local sub-tenon's anesthetic infiltration COMPLICATIONS: None SPECIMENS: None INDICATIONS FOR PROCEDURE: The patient is an 82-year-old lady with history of diminished visual acuity in her right eye secondary to the development of nuclear/posterior subcapsular cataract. She is significantly symptomatic that she desires cataract surgery and attempt to improve and maximize her vision. The option of cataract surgery was offered to the patient and she wished to proceed. PROCEDURE: The correct surgical eye was identified and marked as the right eye and the pupil was dilated in the preoperative area using mydriatics and cycloplegics. The dilated pupil size was 6.0 mm. The patient elected to proceed without oral sedation. The patient was brought to the operating room where cardiopulmonary monitoring was instituted and surgical time-out was performed, confirming the correct operative eye and IOL power. Topical anesthesia was administered and ophthalmic povidone-iodine 5% was instilled into the conjunctival fornices. Lidocaine gel was applied to the cornea and the magalsy-ocular area was prepped with Betadine 10% solution and draped in the usual sterile fashion for intraocular surgery, including an aperture drape. A Tegaderm transparent film dressing was cut in half and used to cover the lashes and lid margins. Care was taken to sequester the lashes and lid margins under the Tegaderm dressing. A lid speculum was placed between the lids of the operative eye and the Malick LuxOR Revalia operating microscope was maneuvered into position. Ciara scissors were then used to make a conjunctival buttonhole approximately 6mm posterior to the limbus in the inferonasal quadrant. Blunt dissection was carried out to expose bare sclera, and a blunt-tipped sub-tenon?s anesthesia cannula was introduced and passed posteriorly along the globe where non-preserved plain lidocaine was injected into posterior sub-Tenon?s space. A sideport knife was used to make a paracentesis port inferotemporally. Intraocular phenylephrine/lidocaine was injected into the anterior chamber. The anterior chamber was filled with viscoelastic. A keratome knife was used to construct a 2-plane near-clear corneal tunnel extending 2.0mm into clear cornea superiortemporally. A flap was raised on the anterior capsule and capsulorhexis forceps were used to complete a continuous curvilinear capsulorhexis of 5.0 mm. Balanced salt solution was then used to perform cortical cleaving hydrodissection and nuclear hydrodelineation until the lens could be freely rotated within the capsular bag. The lens nucleus was then disassembled and removed within the capsular bag and iris plane using phacoemulsification. Residual cortical material was removed using the I/A handpiece. The posterior capsule was carefully polished to remove as much residual lens epithelial cells as safely possible. The capsular bag was then inflated and the anterior chamber deepened with viscoelastic. The lens implant described above was inserted into the capsular bag using the Jean-Pierre and Fredy Simplicity pre-loaded injector. A Kuglen hook was used to dial the IOL into position. Residual viscoelastic was then removed first from posterior to the IOL, then from the anterior chamber using the I/A handpiece. The lens implant was noted to center nicely within the capsular bag. The incisions were stromally hydrated, and the anterior chamber was reformed using BSS. Then 0.5cc of moxifloxacin 1.0mg/ml were injected into the capsular bag and anterior chamber. The incisions were checked with a Weck spear and found to be secure. Several drops of ophthalmic povidone-iodine 5% were then applied to the eye followed by two drops of Imprimis combination prednisolone/moxifloxacin/nepafenac solution. The drapes were removed and a clear plastic protective eye shield was placed over the eye. The patient was then returned to [facility] Day Surgery in stable condition.
--- NOTE | 2022-10-19 12:33 | W.ANESPOSTOP ---
Postoperative Evaluation Date, Time and Location Date Performed: 10/19/22 Time Performed: 12:28 Patient Location: Day Surgery Unit Vital Signs Most Recent Imported Vital Signs: Most Recent Vital Signs Temp Pulse Resp BP Pulse Ox 36 C L 56 L 16 151/69 H 100 10/19/22 12:18 10/19/22 12:18 10/19/22 12:18 10/19/22 12:18 10/19/22 12:18 Pain Score Most Recent Pain Score: Most Recent Pain Score Pain Level 0 10/19/22 12:18 Assessment Mental Status: Awake (Alert & Oriented to Patient Baseline) Airway and Respiratory Function: Patent airway with normal (patient baseline) respiratory exam Cardiovascular Function: Hemodynamically Stable Hydration Status: Adequately Hydrated Nausea & Vomiting: No Nausea or Vomiting Pain: Pt. Denies Any Pain Peripheral Nerve Block: Patient did not receive a nerve block
== END 2022-10-19 12:45 | disposition home or self-care (01) ==
LOC: SUR 10:33
PROVIDERS: PCP Family Medicine; Visit Provider Ophthalmology
PROC: (CPT 66984; principal; 2022-10-19 13:30)
DX: H25.811 Combined forms of age-related cataract, right eye (principal)
CPT/HCPCS: 66984; V2632

== ENCOUNTER 2023-07-29 11:53 | Outpatient (CLI) | payer MEDICARE, OTHER, SELFPAY ==
--- NOTE | 2023-07-29 06:00 | DI.RAD_ITS ---
Exam(s) XR PAIN CLINIC LUMBAR SP 2V EXAM: XR PAIN CLINIC LUMBAR SP 2V CLINICAL HISTORY: DX: Lumbar radiculopathy. TECHNIQUE: Fluoroscopy was provided for the referring physician for guidance with performing pain cl inic injection procedure. COMPARISON: No exams were available for comparison FINDINGS: Please see procedure note for details. Fluoro time: 22.3 seconds RADIATION DOSE DELIVERED: Ka,r=11.34 mGy
[2023-07-29 12:15] VITALS: BP 176/95; PULSE 60; RESP 20; TEMP 36.7; O2SAT 95
[2023-07-29 12:58] VITALS: BP 140/91; PULSE 58; RESP 12; O2SAT 93
[2023-07-29] MEDS: Omnipaque 240 MG/ML 50 ML BTL IJ (13:06)
[2023-07-29] MEDS: methylPREDNISolone ACETATE 80 MG/ML VIAL IJ (13:07)
--- NOTE | 2023-07-29 13:12 | PDOC.PAIN ---
Date of service: 07/29/23 Time of Service: 13:12 Pain Managment Procedure Note Procedure Note Procedure Note: PROCEDURE NOTE LUMBAR EPIDURAL STEROID INJECTION Date of Service: July 29, 2023 Patient:?Taylor Edmond? Provider: Ji Zaman DO, MPH Taylor Edmond has been referred to the [facility] for a lumbar epidural steroid injection. Pre-operative diagnosis: Lumbosacral Radiculopathy Post-operative diagnosis: Same Pre-Procedure Pain: VAS= 7/10 Comments: I previously evaluated her in the clinic. Her symptoms are the same. Taylor was interviewed and the medical record was reviewed.? There were no medical, pharmacologic, radiographic or other structural contraindications to attempting fluoroscopically guided Lumbar epidural steroid injection.? Risks, potential side effects, indications, and potential benefits of the procedure were reviewed with Taylor.? Questions and concerns were addressed.? After it was clear that Taylor was fully informed about the procedure, the printed consent form was signed by the patient and myself.? Taylor was placed in the prone position on the fluoroscopy table and automated blood pressure cuff and pulse oximeter applied. The skin entry point for entering/approaching the epidural space for the lumbar epidural steroid injection was marked. Following thorough chlorhexadine preparation of the skin and draping and 1% lidocaine infiltration of the skin entry point and subcutaneous tissues, an 18 gauge Touhy needle was placed and advanced under fluoroscopic guidance and with loss of resistance technique into the L5-S1 epidural space. Needle tip placement and depth were aided and confirmed by fluoroscopy. There was no paresthesia or return of blood or CSF through the needle. 1 mls of Omnipaque 240 was injected with clear epidural spread confirmed with fluoroscopy. 80 mg of Depo-Medrol was? injected. This was followed by 1 ml of preservative-free normal saline to flush the steroid out of the needle. There was no unusual discomfort expressed by Taylor. The needle was withdrawn without difficulty. (49 mls of Omnipaque was wasted) Taylor was observed and was without hemodynamic, neurologic, or allergic reactions.? Fluoroscopic images were digitally archived. Taylor's vital signs were stable throughout the procedure and were as recorded in nursing records. Follow up plans and appointments were discussed with Taylor. Post procedure instruction was given as documented in nursing records and having met discharge criteria Taylor was discharged from the [facility]. COMMENTS: No apparent complications. Post-procedure pain: VAS= 0/10. Taylor to contact [facility] as needed. If at least 50% improvement in pain and/or function for at least 3 months is achieved, this procedure can be repeated. I personally performed this entire procedure. JI ZAMAN DO, MPH ABPMR-subspecialty board certification in Pain Medicine [facility]
== END 2023-07-29 11:54 | disposition home or self-care (01) ==
LOC: PC 11:55
PROVIDERS: PCP Family Medicine; Visit Provider Preventive Medicine Occupational Medicine
DX: M54.50 Low back pain, unspecified (principal); M54.17 Radiculopathy, lumbosacral region
CPT/HCPCS: 00123; 62323; 72100; J1040; Q9967

== ENCOUNTER → 2023-10-26 08:20 | Outpatient (BNVA) | payer MEDICARE, OTHER, SELFPAY | PROVIDERS: PCP Family Medicine; Referring Provider Family Medicine; Visit Provider Podiatrist | DX: I70.90 Unspecified atherosclerosis (principal); B35.1 Tinea unguium; M77.42 Metatarsalgia, left foot; M25.572 Pain in left ankle and joints of left foot; M79.671 Pain in right foot; I87.2 Venous insufficiency (chronic) (peripheral); R60.0 Localized edema; L60.0 Ingrowing nail; I73.9 Peripheral vascular disease, unspecified | CPT/HCPCS: 11721; 99214 ==

== ENCOUNTER → 2023-10-26 09:39 | Outpatient (CLI) | payer MEDICARE, SELFPAY ==
--- NOTE | 2023-10-26 09:42 | DI.RAD_ITS ---
Exam(s) XR FOOT LT COMPLETE EXAM: XR FOOT LT COMPLETE CLINICAL HISTORY: M77.42 Pain left fourth metatarsophalangeal joint. TECHNIQUE: 2D digital imaging was performed of the left foot. Three images were obtained. AP, obli que and lateral views were obtained. COMPARISON: No exams were available for comparison FINDINGS: BONES: No acute fracture is present. No bony destructive lesion is seen. There is a small plantar cheryl caneal spur. There is a small enthesophyte at the posterior calcaneus. JOINTS: No dislocation present. Mild degenerative changes are seen in the foot particularly in the in terphalangeal joints and the 1st MTP joint. SOFT TISSUE: Dystrophic calcifications are seen around the 1st MTP joint. IMPRESSION: Mild arthrosis of the foot. DATA REPOSITORY: RADIATION DOSE DELIVERED:
--- NOTE | 2023-10-26 09:42 | DI.RAD_ITS ---
Exam(s) XR FOOT RT COMPLETE EXAM: XR FOOT RT COMPLETE CLINICAL HISTORY: M79.671 pain in right foot Comparison. TECHNIQUE: 2D digital imaging was performed of the right foot. Three images were obtained. AP, obl ique and lateral views were obtained. COMPARISON: No exams were available for comparison FINDINGS: BONES: No acute fracture is present. No bony destructive lesion is seen. There is a moderate size antoinette ntar calcaneal spur. There is an enthesophyte at the posterior calcaneus. JOINTS: No dislocation present. Degenerative changes are seen in the foot characterized by joint spac e narrowing and osteophytes. The findings are [id number]. The findings are most marked at the 1st MTP joint. SOFT TISSUE: Normal. IMPRESSION: [id number] degenerative changes of the foot. DATA REPOSITORY: RADIATION DOSE DELIVERED:
== END ==
PROVIDERS: PCP Family Medicine; Visit Provider Podiatrist
DX: M77.42 Metatarsalgia, left foot (principal); M25.572 Pain in left ankle and joints of left foot; M79.671 Pain in right foot
CPT/HCPCS: 11721; 99214; 73630

== ENCOUNTER → 2023-12-16 10:39 | Outpatient (BNVA) | payer MEDICARE, SELFPAY | PROVIDERS: PCP Family Medicine; Referring Provider Family Medicine; Visit Provider Podiatrist | DX: B35.1 Tinea unguium; M77.42 Metatarsalgia, left foot; M25.572 Pain in left ankle and joints of left foot; M79.671 Pain in right foot; I87.2 Venous insufficiency (chronic) (peripheral); R60.9 Edema, unspecified; L60.0 Ingrowing nail | CPT/HCPCS: 11721 ==

== ENCOUNTER → 2023-12-16 11:19 | Outpatient (BNVA) | payer MEDICARE, SELFPAY | PROVIDERS: PCP Family Medicine; Referring Provider Family Medicine; Visit Provider Physical Therapy Assistant | DX: I73.9 Peripheral vascular disease, unspecified (principal); I87.2 Venous insufficiency (chronic) (peripheral) | CPT/HCPCS: 11721; 93922 ==

== ENCOUNTER → 2024-02-09 14:03 | Outpatient (BNVA) | payer MEDICARE, SELFPAY | PROVIDERS: PCP Family Medicine; Referring Provider Family Medicine; Visit Provider Psychiatry & Neurology Neurology | DX: G25.0 Essential tremor (principal) | CPT/HCPCS: 99215 ==

== ENCOUNTER → 2024-04-20 10:53 | Outpatient (BNVA) | payer MEDICARE, SELFPAY | PROVIDERS: PCP Family Medicine; Referring Provider Family Medicine; Visit Provider Podiatrist | DX: I70.208 Unspecified atherosclerosis of native arteries of extremities, other extremity (principal); B35.1 Tinea unguium; M77.42 Metatarsalgia, left foot; M25.572 Pain in left ankle and joints of left foot; I87.2 Venous insufficiency (chronic) (peripheral); R60.0 Localized edema; L60.0 Ingrowing nail | CPT/HCPCS: 11719 ==

== ENCOUNTER → 2024-09-06 10:25 | Outpatient (BNVA) | payer MEDICARE, SELFPAY | PROVIDERS: PCP Family Medicine; Referring Provider Family Medicine; Visit Provider Podiatrist | DX: L60.3 Nail dystrophy (principal); B35.1 Tinea unguium; I87.2 Venous insufficiency (chronic) (peripheral); R60.0 Localized edema; E53.8 Deficiency of other specified B group vitamins; M79.674 Pain in right toe(s); I73.89 Other specified peripheral vascular diseases; L65.9 Nonscarring hair loss, unspecified; M79.675 Pain in left toe(s); R23.8 Other skin changes; L60.2 Onychogryphosis | CPT/HCPCS: 11721 ==

== ENCOUNTER → 2025-02-19 13:17 | Outpatient (BNVA) | payer MEDICARE, SELFPAY | PROVIDERS: PCP Family Medicine; Referring Provider Family Medicine; Visit Provider Podiatrist | DX: B35.1 Tinea unguium (principal); I87.2 Venous insufficiency (chronic) (peripheral); R60.0 Localized edema; E53.8 Deficiency of other specified B group vitamins; M79.672 Pain in left foot; L60.3 Nail dystrophy; R09.89 Other specified symptoms and signs involving the circulatory and respiratory systems; R20.8 Other disturbances of skin sensation; L65.9 Nonscarring hair loss, unspecified; R23.8 Other skin changes; L60.2 Onychogryphosis | CPT/HCPCS: 11719; 11720 ==